=== PATIENT | female | born 1985 | race African-American/Black ===

== ENCOUNTER 2018-06-06 05:44 | Emergency (ER) | payer OTHER ==
[~2018-06-06] VITALS: Ht 162.6 cm; Wt 54.4 kg
[2018-06-06] MEDS ORDERED: NKM (06:02)
[2018-06-06 06:06] VITALS: BP 110/71
--- NOTE | 2018-06-06 06:31 | Emergency Room Report ---
History of Present Illness General Chief Complaint: Sore Throat Source: Patient Present Illness HPI Patient presents with 2 days of sore throat and lost her voice. She's had a mild nonproductive cough also. She denies any fevers or chills. She denies any neck pain but has some bumps in her neck. There are no rashes or headache. Her last period was last week and normal for her. She's been unable to work. She's not taking any medication for this. Patient denies any major medical problems. No nausea vomiting diarrhea, dysuria. 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 Now: No Reviewed Nursing Documentation: PMH: Agreed; PSxH: Agreed Nursing Documentation-PMH Past Medical History: No Stated History Review of Systems All Other Systems: negative except mentioned in HPI Physical Exam Vital Signs Date Time Temp Pulse Resp B/P (MAP) Pulse Ox O2 Delivery O2 Flow Rate FiO2 06/06/18 05:56 98.2 86 16 110/71 96 Room Air Sp02 EP Interpretation: reviewed, normal General Appearance: well appearing, no apparent distress Head: normocephalic, atraumatic Eyes: bilateral eye normal inspection, bilateral eye PERRL ENT: pharyngeal erythema, tonsillar exudate, other - Speaks with whisper Neck: full range of motion, supple Respiratory: lungs clear, normal breath sounds, no respiratory distress, speaking full sentences Cardiovascular #1: regular rate, rhythm Cardiovascular #2: 2+ radial (R) Gastrointestinal: normal bowel sounds, non tender, scaphoid Genitourinary: no CVA tenderness Musculoskeletal: back normal, digits/nails normal, gait/station normal Neurologic: alert, oriented x3, normal gait, grossly normal Psychiatric: mood/affect normal Skin: no rash Medical Decision Making Diagnostic Impression: Primary Impression: Pharyngitis Qualified Codes: J02.9 - Acute pharyngitis, unspecified ER Course Patient presents with sore throat and lost her voice. Differential includes laryngitis, viral syndrome, strep amongst others. Based on her exam this appears to be strep. Antibiotics and prednisone are indicated. Discussed treatment plan with patient. Patient stable for outpatient observation and treatment. Last Vital Signs Date Time Temp Pulse Resp B/P (MAP) Pulse Ox O2 Delivery O2 Flow Rate FiO2 06/06/18 06:40 98.3 86 16 110/71 96 Room Air Status: unchanged Disposition: HOME, SELF-CARE Condition: Stable Scripts Amoxicillin/Potassium Clav 500-125 Tablet* (AUGMENTIN 500-125 TABLET*) 1 Each Tablet 1 TAB ORAL THREE TIMES A DAY, #20 TAB Prov: Saeed Huang MD 06/06/18 Saeed Huang MD Jun 06, 2018 06:30
[2018-06-06] MEDS ORDERED: AUGMENTIN 500-1 EACH ORAL ×2 (06:32→18:46)
== END 2018-06-06 06:40 | disposition home or self-care (01) ==
LOC: EMR 06:28
DX: J02.9 Acute pharyngitis, unspecified (principal)
CPT/HCPCS: 99283; J7512